=== PATIENT | female | born 1975 | race Caucasian/White ===

== ENCOUNTER 2017-09-19 11:45 | Emergency (ER) | END 2017-09-19 17:00 | disposition home or self-care (01) ==

== ENCOUNTER 2019-03-30 08:15 | Emergency (ER) | payer MEDICAID ==
[~2019-03-30] VITALS: Wt 62.3 kg
[2019-03-30] MEDS ORDERED: ONDANSETRON 4 MG INJ IV STA (09:16)
[2019-03-30] MEDS ORDERED: SOD CHLORIDE 0.9% 1,000 ML IV STA (09:16)
[2019-03-30] MEDS ORDERED: KETOROLAC 30 MG INJ IV STA (09:16)
[2019-03-30] MEDS ORDERED: BUTA1CAP38 PO (10:32)
[2019-03-30 10:43] VITALS: BP 121/74; PULSE 71; RESP 20
--- NOTE | 2019-03-30 14:20 | ERD ---
ER Documentation Chief Complaint Chief Complaint gomez HPI 43-year-old female presenting with a headache that comes and goes. She had no episodes of vomiting and took aspirin. She has occasional dizziness. She states is been going for the last 4 days. She does not know what causes it and denies any traumatic injuries. Denies any visual changes. Denies medical problems. allergy to penicillin. Surgical history . Social history de nies ROS All systems reviewed and are negative except as per history of present illness. Medications Home Meds Active Scripts Gkfpopmilt-Dhjuhtvfxzhwx-Uutmklla* (Fioricet*) 50-300-40 Mg Capsule, 1 CAP PO Q4H PRN for HEADACHE, #30 CAP Prov:CARLOS BERRIOS PA-C 03/30/19 Allergies Allergies: Coded Allergies: Penicillins (Verified Allergy, Severe, SWELLING, 09/19/17) Shellfish (Verified Allergy, Mild, 09/19/17) PMhx/Soc History of Surgery: Yes ( section) Anesthesia Reaction: No Hx Neurological Disorder: No Hx Respiratory Disorders: No Hx Cardiac Disorders: No Hx Psychiatric Problems: Yes (anxiety) Hx Miscellaneous Medical Probl: No Hx Alcohol Use: No Hx Substance Use: No Hx Tobacco Use: No Smoking Status: Never smoker FmHx Family History: No diabetes, No coronary disease, No other Physical Exam Vitals Vital Signs Date Temp Pulse Resp B/P (MAP) Pulse Ox O2 O2 Flow FiO2 Time Delivery Rate 03/30/19 97.9 71 20 121/74 98 Room Air 10:43 (90) 03/30/19 97.9 79 20 130/70 98 08:17 (90) Physical Exam GENERAL: The patient is well-appearing, well-nourished, in no acute distress HEENT: Atraumatic. Conjunctivae are pink. Pupils equal, round, and reactive to light. There is no scleral icterus. Tympanic membranes clear bilaterally. Oropharynx clear. NECK: C-spine is soft and supple. There is no meningismus. There is no cervical lymphadenopathy. CHEST: Clear to auscultation bilaterally. There are no rales, wheezes or rhonchi. HEART: Regular rate and rhythm. No murmurs, clicks, rubs or gallops. NEUROLOGIC: Alert and oriented. Cranial nerves II through XII intact. Motor strength in all 4 extremities with 5 out of 5 strength. Sensation grossly intact. Normal speech and gait. Babinski negative. DTR 2+ throughout. Results 24 hrs Laboratory Tests Test 03/30/19 09:26 03/30/19 09:41 POC Beta HCG, Qualitative NEGATIVE Bedside Urine pH (LAB) 5.5 Bedside Urine Protein (LAB) Negative Bedside Urine Glucose (UA) Negative Bedside Urine Ketones (LAB) Negative Bedside Urine Blood Trace-intact Bedside Urine Nitrite (LAB) Negative Bedside Urine Leukocyte Esterase (L Negative Current Medications Medications Dose Sig/Karl Start Time Status Last (Trade) Ordered Route PRN Stop Time Admin Dose Reason Admin Sodium 1,000 ml @ Q1H STAT 03/30/19 DC 03/30/19 Chloride 1,000 mls/hr IV 09:16 09:29 03/30/19 10:15 Ondansetron 4 mg ONCE STAT 03/30/19 DC 03/30/19 HCl (Zofran IV 09:16 09:29 Inj) 03/30/19 09:18 Ketorolac 30 mg ONCE STAT 03/30/19 DC 03/30/19 Tromethamine IV 09:16 09:29 (Toradol) 03/30/19 09:18 Procedures/MDM DIAGNOSTIC IMAGING REPORT Patient: JAYY CASTILLO : 1975 Age: 43 Sex: F MR #: [id number] DOS: 03/30/1916 Ordering MD: YAAKOV BERRIOS PA-C Location: [facility] Room/Bed: PROCEDURE: CT head CLINICAL INDICATION: Headaches TECHNIQUE: Contiguous 2.5 mm axial images were obtained from the vertex to the skull base. No intravenous contrast was administered. The calculated dose length product (DLP) = 554.95 mGy-cm. The CTDlvol = 39.42 mGy. One or more of the following dose reduction techniques were used: Automated exposure control, adjustment of the mA and or KV according to patient size, or use of iterative reconstruction technique. DICOM images are available. COMPARISON: 04/18/2009 FINDINGS: There is no acute intracranial hemorrhage or acute territorial infarct. No mass or mass effect is seen on this noncontrast study. Ventricles and cisterns are normal in size and configuration. Walker-white matter differentiation is within normal limits. Visualized paranasal sinuses are normally aerated. The bony calvarium is unremarkable. IMPRESSION: Unremarkable unenhanced CT of the brain ER course: 1 L normal saline given in ED. Zofran and Toradol IV given in ED. Upon reevaluation patient symptoms improved. MDM: 43-year-old female presenting with headache. I have low suspicion for intracranial hemorrhage or neuro deficit. I have low suspicion for meningitis or sepsis. I have low suspicion for infectious process. Patient be discharged with supportive medications and told to follow-up with primary care within 1 to 2 days for close evaluation. Patient is told if symptoms change or worsen to return immediately to the ER. All questions answered at discharge Departure Diagnosis: Primary Impression: Headache Condition: Stable Patient Instructions: Self-Care for Headaches Referrals: [facility] YOU HAVE RECEIVED A MEDICAL SCREENING EXAM AND THE RESULTS INDICATE THAT YOU DO NOT HAVE A CONDITION THAT REQUIRES URGENT TREATMENT IN THE EMERGENCY DEPARTMENT. FURTHER EVALUATION AND TREATMENT OF YOUR CONDITION CAN WAIT UNTIL YOU ARE SEEN IN YOUR DOCTORS OFFICE WITHIN THE NEXT 1-2 DAYS. IT IS YOUR RESPONSIBILITY TO MAKE AN APPOINTMENT FOR FOLOW-UP CARE. IF YOU HAVE A PRIMARY DOCTOR --you should call your primary doctor and schedule an appointment IF YOU DO NOT HAVE A PRIMARY DOCTOR YOU CAN CALL OUR PHYSICIAN REFERRAL HOTLINE AT IF YOU CAN NOT AFFORD TO SEE A PHYSICIAN YOU CAN CHOSE FROM THE FOLLOWING [facility] [address] [facility]. [facility] [address] [facility]. [facility] [address] [facility] [address] [facility] [address] [facility]. [facility]. [address] Additional Instructions: FOLLOW UP WITH YOUR PRIMARY CARE PHYSICIAN TOMORROW.Return to this facility if you are not improving as expected. CARLOS BERRIOS PA-C Mar 30, 2019 14:20
== END 2019-03-30 10:45 | disposition home or self-care (01) ==
LOC: FTE 08:15
DX: R51 Headache (principal)
CPT/HCPCS: 36415; 70450; 81003; 81025; 96361; 96374; 96375; J1885; J2405; J7030; Z7502

== ENCOUNTER 2019-04-01 01:41 | Emergency (ER) | payer MEDICAID ==
[~2019-04-01] VITALS: Ht 147.3 cm; Wt 53.4 kg
[~2019-04-01 01:41] MED LIST: BUTA1CAP38 PO
[2019-04-01 01:43] VITALS: Ht 147.3 cm; Wt 53.4 kg
--- NOTE | 2019-04-01 01:50 | ERD ---
ER Documentation Chief Complaint Chief Complaint abdominal pain since yesterday after taking rx fioricet HPI The patient is a 43-year-old female, presenting to the ER because of epigastric abdominal pain at 2:30 PM after she took a Fioricet at 2 PM for her headache. She was seen in the ER yesterday for headache, had a negative brain CT discharged with Fioricet. The abdominal pain is worse after she ate around 7 PM. She denies similar symptoms previously, denies fever, chills, neck pain, chest pain, dyspnea, complains of nausea but no vomiting, complains of constipation, denies dysuria. She does not smoke nor drink, has irregular menstrual. Past medical history: Anxiety Past surgical history: ROS All systems reviewed and are negative except as per history of present illness. Medications Home Meds Active Scripts Acetaminophen* (Tylenol*) 325 Mg Tablet, 2 TAB PO Q6 PRN for PAIN AND OR ELEVATED TEMP, #20 TAB Prov:ANGELICA JACOB MD 04/01/19 Kfenzenxkm-Epslyosfxjcvt-Lxteobpb* (Fioricet*) 50-300-40 Mg Capsule, 1 CAP PO Q4H PRN for HEADACHE, #30 CAP Prov:CARLOS BERRIOS PA-C 03/30/19 Allergies Allergies: Coded Allergies: Penicillins (Verified Allergy, Severe, SWELLING, 09/19/17) Shellfish (Verified Allergy, Mild, 09/19/17) PMhx/Soc History of Surgery: Yes ( section) Anesthesia Reaction: No Hx Neurological Disorder: No Hx Respiratory Disorders: No Hx Cardiac Disorders: No Hx Psychiatric Problems: Yes (anxiety) Hx Miscellaneous Medical Probl: No Hx Alcohol Use: No Hx Substance Use: No Hx Tobacco Use: No Physical Exam Vitals Vital Signs Date Temp Pulse Resp B/P (MAP) Pulse Ox O2 O2 Flow FiO2 Time Delivery Rate 04/01/19 62 17 119/77 100 Room Air 03:00 (91) 04/01/19 99.3 82 18 139/88 98 01:43 (105) Physical Exam Const: No acute distress. Head: Atraumatic. Eyes: Normal Conjunctiva. ENT: Normal External Ears, Nose and Mouth. Neck: Full range of motion. No meningismus. Resp: Clear to auscultation bilaterally. Cardio: Regular rate and rhythm. Abd: Soft, non distended, normal bowel sounds, mild epigastric and ri ght upper quadrant tenderness, no rigidity/rebound/CVA tenderness Skin: No petechiae or rashes. Back: No midline or flank tenderness. Ext: No cyanosis, or edema. Neur: Awake and alert. No focal deficit Psych: Anxious Result Diagram: 04/01/19 0205 04/01/19 0205 Results 24 hrs Laboratory Tests Test 04/01/19 02:05 04/01/19 02:12 04/01/19 02:14 White Blood Count 6.5 10^3/ul Red Blood Count 4.12 10^6/ul Hemoglobin 12.8 g/dl Hematocrit 38.2 % Mean Corpuscular Volume 92.7 fl Mean Corpuscular Hemoglobin 31.1 pg Mean Corpuscular 33.5 g/dl Hemoglobin Concent Red Cell Distribution Width 12.6 % Platelet Count 243 10^3/UL Mean Platelet Volume 10.7 fl Immature Granulocytes % 0.200 % Neutrophils % 46.3 % Lymphocytes % 39.1 % Monocytes % 9.3 % Eosinophils % 4.0 % Basophils % 1.1 % Nucleated Red Blood Cells % 0.0 /100WBC Immature Granulocytes # 0.010 10^3/ul Neutrophils # 3.0 10^3/ul Lymphocytes # 2.6 10^3/ul Monocytes # 0.6 10^3/ul Eosinophils # 0.3 10^3/ul Basophils # 0.1 10^3/ul Nucleated Red Blood Cells # 0.0 10^3/ul Sodium Level 141 mmol/L Potassium Level 4.0 mmol/L Chloride Level 106 mmol/L Carbon Dioxide Level 26 mmol/L Anion Gap 9 Blood Urea Nitrogen 9 mg/dl Creatinine 0.62 mg/dl Est Glomerular Filtrat Rate mL/min > 60 mL/min Glucose Level 97 mg/dl Calcium Level 9.4 mg/dl Total Bilirubin 0.3 mg/dl Direct Bilirubin 0.00 mg/dl Indirect Bilirubin 0.3 mg/dl Aspartate Amino Transf (AST/SGOT) 24 IU/L Alanine 37 IU/L Aminotransferase (ALT/SGPT) Alkaline Phosphatase 108 IU/L Total Protein 7.7 g/dl Albumin 4.4 g/dl Globulin 3.30 g/dl Albumin/Globulin Ratio 1.33 Lipase 100 U/L Bedside Urine pH (LAB) 6.5 Bedside Urine Protein (LAB) Negative Bedside Urine Glucose (UA) Negative Bedside Urine Ketones (LAB) Negative Bedside Urine Blood Trace-lysed Bedside Urine Nitrite (LAB) Negative Bedside Urine Leukocyte Esterase Negative (L POC Beta HCG, Qualitative NEGATIVE Current Medications Medications Dose Sig/Karl Start Time Status Last (Trade) Ordered Route PRN Stop Time Admin Dose Reason Admin Sodium 1,000 ml @ Q1H STAT 04/01/19 DC 04/01/19 Chloride 1,000 mls/hr IV 01:59 02:06 04/01/19 02:58 Morphine 2 mg ONCE STAT 04/01/19 DC 04/01/19 Sulfate IV 01:59 02:09 (morphine) 04/01/19 02:00 Ondansetron 4 mg ONCE STAT 04/01/19 DC 04/01/19 HCl (Zofran IV 01:59 02:08 Inj) 04/01/19 02:00 Famotidine 20 mg ONCE ONCE 04/01/19 DC 04/01/19 (Pepcid Iv) IV 02:30 02:17 04/01/19 02:31 Procedures/MDM MEDICAL MAKING DECISION: The patient is a 43-year-old female, presenting with acute drug adverse effect, acute anxiety. She was treated with 1L normal saline for clinical dehydration, morphine 2 mg IV for pain, Zofran 4 mg IV for nausea, Pepcid IV for epigastric pain with good response, is stable for outpatient follow-up The differential diagnoses considered include but are not limited to cholelithiasis, cholecystitis, choledocholithiasis, cholangitis, pancreatitis, hepatitis, gastritis, peptic ulcer disease, gastric ulcer, appendicitis, cystitis, diverticulitis, partial small bowel obstruction. Departure Diagnosis: Primary Impression: Adverse drug effect Additional Impression: Anxiety Condition: Good Comments She was advised to stop Fioricet, discharged with Tylenol for her headache as needed The patient's blood pressure was elevated (>120/80) but appears stable without evidence of hypertension emergency or urgency. The patient was counseled about the risks of hypertension and urged to pursue outpatient monitoring and therapy within a week with their primary care physician. I discussed the findings with the patient. I advised the patient to follow-up with the primary physician in about 1-2 days, sooner if needed and return if any concern. Disclaimer: Inadvertent spelling and grammatical errors are likely due to EHR/dictation software use and do not reflect on the overall quality of patient care. Also, please note that the electronic time recorded on this note does not necessarily reflect the actual time of the patient encounter. ANGELICA JACOB MD Apr 01, 2019 01:50
[2019-04-01] MEDS ORDERED: ONDANSETRON 4 MG INJ IV STA (01:59)
[2019-04-01] MEDS ORDERED: morphine 2 MG INJ IV STA (01:59)
[2019-04-01] MEDS ORDERED: SOD CHLORIDE 0.9% 1,000 ML IV STA (01:59)
[2019-04-01] MEDS ORDERED: FAMOTIDINE 20 MG INJ IV ONE (02:30)
[2019-04-01 03:00] VITALS: BP 119/77; PULSE 62; RESP 17
[2019-04-01] MEDS ORDERED: ACET325T33 PO (03:05)
== END 2019-04-01 03:18 | disposition home or self-care (01) ==
LOC: E/R 01:41
DX: F41.9 Anxiety disorder, unspecified (principal); T50.995A Adverse effect of other drugs, medicaments and biological substances, initial encounter
CPT/HCPCS: 36415; 76705; 80053; 81003; 81025; 83690; 85025; 96374; 96375; J2270; J2405; J7030; Z7502; Z7610